=== PATIENT | female | born 1960 ===

== ENCOUNTER → 2022-05-22 | Outpatient (CLI) | payer OTHER ==
[~2022-05-22] MED LIST: ASPI325 PO; CETI10 PO; CYCL0.05OP; ERGO400 PO; ESTNOR PO; GLIM2 PO; HYDACE5 PO; LEVSOD25 PO; LOTE.5SUSP BOTHEYES; METF500 PO; METF850 PO; NAPR220 PO; NORITATE; OMEP20ER PO; PIOG45 PO; RESTASIS OU; [UNRECOGNIZED DRUG - REMARK]
[2022-05-25 13:11] LABS: HPV 16 Negative (Negative); HPV 18 Negative (Negative); HPV OTHER HR TYPES Negative (Negative)
== END ==
LOC: LAB 11:45 → LAB SHORT 11:45
PROVIDERS: Internal Medicine
DX: Z12.4 Encounter for screening for malignant neoplasm of cervix (principal)
CPT/HCPCS: 87624; G0145